=== PATIENT | male | born 1995 | race Caucasian/White ===

== ENCOUNTER 2021-02-05 16:55 | Inpatient (IN) | payer OTHER ==
[2021-02-05 17:30] VITALS: BMI 34.0
[2021-02-05] MEDS ORDERED: METHOCARBAMOL 500 MG TABLET PO PRN (19:11)
[2021-02-05] MEDS ORDERED: IBUPROFEN 400 MG TABLET (FP) PO PRN (19:11)
[2021-02-05] MEDS ORDERED: MAGNESIUM CITRATE 300 ML BOTTLE PO PRN (19:11)
[2021-02-05] MEDS ORDERED: BISMUTH SUBSALICYLATE 524 MG/30 ML UD PO PRN (19:11)
[2021-02-05] MEDS ORDERED: ACETAMINOPHEN 325 MG TABLET (FP) PO PRN ×2 (19:11)
[2021-02-05] MEDS ORDERED: MAGNESIUM HYDROX 2400MG/30ML ORAL SUSPENSION 30 ML CUP PO PRN (19:11)
[2021-02-05] MEDS ORDERED: MENTHOL/PHENOL 1 EACH UD MM PRN (19:11)
[2021-02-05] MEDS ORDERED: hydrOXYzine PAMOATE 25 MG CAPSULE (FP) PO PRN (19:11)
[2021-02-05] MEDS ORDERED: ONDANSETRON *ODT* 4 MG TABLET SL PRN (19:11)
[2021-02-05] MEDS ORDERED: MAG HYDROX/AL HYDROX/SIMETH 30 ML UNIT-DOSE CUP PO PRN (19:11)
[2021-02-05] MEDS ORDERED: diazePAM 5 MG TABLET PO ONE (19:12)
[2021-02-05] MEDS ORDERED: diazePAM 5 MG TABLET PO PRN (19:12)
[2021-02-05] MEDS: MELATONIN 5 MG TABLETS PO SCH (23:18)
[2021-02-05] MEDS: THIAMINE HCL 100 MG TABLET (FP) PO SCH (23:18)
[2021-02-05] MEDS: BACITRACIN 0.9 GM PACKET TP SCH (23:18)
[2021-02-05] MEDS: diazePAM 5 MG TABLET PO SCH (23:18)
[2021-02-06] MEDS: diazePAM 5 MG TABLET PO SCH ×4 (05:44→23:29)
[2021-02-06 09:49] LABS: HEMATOCRIT 42.6 % (35.4-49); HEMOGLOBIN 14.3 GM/dL (11.7-16.9); MCH 33.2 pg (25.7-33.7); MCHC 33.6 g/dl (32.0-35.9); MEAN CELL VOLUME 98.9 fl (80-96); MEAN PLT VOLUME 9.2 fl (7.5-11.1); PLATELET COUNT 212 K/MM3 (134-434); RBC 4.31 M/mm3 (4.00-5.60); RDW 12.8 % (11.9-15.9)
[2021-02-06 09:52] LABS: POTASSIUM 3.7 mmol/L (3.5-5.1)
[2021-02-06 10:23] LABS: CREATININE 0.9 mg/dL (0.55-1.3)
[2021-02-06 10:24] LABS: BILIRUBIN,TOTAL 1.2 mg/dL (0.2-1); BLOOD UREA NITROGEN 9.2 mg/dL (7-18); CALCIUM 9.1 mg/dL (8.5-10.1); TOT PROT 7.5 g/dl (6.4-8.2)
[2021-02-06] MEDS: PRENATAL VITAMINS W/ FOLIC ACID TABLET (FP) PO SCH (10:42)
[2021-02-06] MEDS: BACITRACIN 0.9 GM PACKET TP SCH ×2 (10:42→23:28)
[2021-02-06] MEDS: MELATONIN 5 MG TABLETS PO SCH (23:28)
[2021-02-06] MEDS: THIAMINE HCL 100 MG TABLET (FP) PO SCH (23:29)
[2021-02-07] MEDS: diazePAM 5 MG TABLET PO SCH ×3 (07:10→23:17)
[2021-02-07] MEDS: BACITRACIN 0.9 GM PACKET TP SCH ×2 (10:59→22:57)
[2021-02-07] MEDS: PRENATAL VITAMINS W/ FOLIC ACID TABLET (FP) PO SCH (10:59)
[2021-02-07] MEDS: THIAMINE HCL 100 MG TABLET (FP) PO SCH (22:57)
[2021-02-07] MEDS: MELATONIN 5 MG TABLETS PO SCH (22:59)
[2021-02-08] MEDS: diazePAM 5 MG TABLET PO SCH ×2 (07:15→17:41)
[2021-02-08] MEDS: PRENATAL VITAMINS W/ FOLIC ACID TABLET (FP) PO SCH (10:57)
[2021-02-08] MEDS: BACITRACIN 0.9 GM PACKET TP SCH ×2 (10:57→23:04)
[2021-02-08] MEDS: MELATONIN 5 MG TABLETS PO SCH (23:02)
[2021-02-08] MEDS: THIAMINE HCL 100 MG TABLET (FP) PO SCH (23:03)
[2021-02-09] MEDS ORDERED: diazePAM 5 MG TABLET PO ONE (06:00)
[2021-02-09] MEDS: BACITRACIN 0.9 GM PACKET TP SCH (11:43)
[2021-02-09] MEDS: PRENATAL VITAMINS W/ FOLIC ACID TABLET (FP) PO SCH (11:43)
[2021-02-09 17:34] VITALS: BP 143/71; PULSE 86; TEMP 97.1
== END 2021-02-09 18:00 | disposition home or self-care (01) | DRG 775 ==
LOC: YASAS 16:55 → Y6N 19:50
PROVIDERS: ADMIT Allergy & Immunology; ATTEND Allergy & Immunology
PROC: HZ2ZZZZ Detoxification Services for Substance Abuse Treatment (ICD-10-PCS; principal; 2021-02-05)
DX: F10.230 Alcohol dependence with withdrawal, uncomplicated (principal); F10.220 Alcohol dependence with intoxication, uncomplicated; F17.210 Nicotine dependence, cigarettes, uncomplicated; U07.1 COVID-19; M25.562 Pain in left knee; M25.542 Pain in joints of left hand; M79.672 Pain in left foot; W01.198A Fall on same level from slipping, tripping and stumbling with subsequent striking against other object, initial encounter; Y93.89 Activity, other specified; Y92.238 Other place in hospital as the place of occurrence of the external cause; Y99.9 Unspecified external cause status
CPT/HCPCS: 36415; 80053; 85027; 86780; C9803; U0003